=== PATIENT | male | born 1990 | race Caucasian/White ===

== ENCOUNTER 2022-05-16 10:26 | Emergency (ER) | payer OTHER, SELFPAY ==
[2022-05-16] VITALS (20 sets, daily range): BP systolic 111–132; BP diastolic 79–92; PULSE 88–115; RESP 16–30; TEMP 36.6; O2SAT 94–98
--- NOTE | ~2022-05-16 | CT_ITS ---
EXAMINATION: CT brain wo con DATE: 05/16/2022 11:50 INDICATION: Altered mental status. TECHNIQUE: Computed tomography (CT) of the head was performed without intravenous contrast. The mA wa s adjusted according to patient size. Iterative reconstruction technique was employed. The dose-lengt h product was 605.33 mGy-cm. COMPARISON: None FINDINGS: There is no intracranial hemorrhage, acute infarction, or abnormal intracranial mass lesion . The ventricles are normal in size. The orbits are normal. There is mild mucosal thickening in the p aranasal sinuses. The mastoid air cells are normal. IMPRESSION: 1. Normal brain. Reviewed, dictated and finalized at location A. IMPRESSION: 1. Normal brain.
--- NOTE | 2022-05-16 10:27 | ED.GENADULT ---
HPI - General Adult General Chief complaint: Environmental Exposure Stated complaint: heat exhaustion Time Seen by Provider: 05/16/22 10:27 History of Present Illness HPI narrative: The patient is a 31-year-old male with history of bipolar disorder presenting to the emergency department for evaluation because he thought he was becoming overheated. Patient was found crossing an interstate noted to be mumbling by police. Patient was brought in for assessment, currently is alert and oriented to person, place, and to time with clear speech. Patient denies any complaints of chest pain, abdominal pain, nausea or vomiting. Patient states that he was ambulating trying to find a [employer] and decided to cross an interstate in order to get to the bank parking lot. Patient states that he then felt warm and decided to sit down underneath a tree and then he states that he began to feel much better. At 1 point, patient states that his entire body felt tingly. He states that he was very sweaty and fatigued. Patient has been compliant with his medications. These include Cogentin, buspirone, divalproex, ziprasidone. Related Data Home Medications Medication Instructions Recorded Confirmed benztropine 2 mg tablet mg 05/16/22 buspirone 30 mg tablet mg 05/16/22 divalproex 500 mg tablet,extended mg PO 05/16/22 release 24 hr metoprolol succinate 25 mg mg PO 05/16/22 tablet,extended release 24 hr ziprasidone HCl 80 mg capsule mg PO 05/16/22 Allergies Allergy/AdvReac Type Severity Reaction Status Date / Time haloperidol AdvReac Unknown BLACKOUTS Verified 05/16/22 10:32 PER PT risperidone AdvReac Unknown INCREASES Verified 05/16/22 10:32 PROLACTIN PER PT lithium AdvReac Other Verified 05/16/22 10:32 Review of Systems Review of Systems: CONSTITUTIONAL: Denies fever, chills, reports being diaphoretic earlier EYES: Denies visual changes, redness, or discharge. ENT: Denies rhinorrhea, congestion, sore throat, or otalgia. CARDIOVASCULAR: Denies chest pain, palpitations, or edema. RESPIRATORY: Denies cough or dyspnea. GASTROINTESTINAL: Denies abdominal pain, nausea, vomiting, or diarrhea. GENITOURINARY: Denies dysuria or hematuria. SKIN: Denies rash or itching. MUSCULOSKELETAL: Denies back pain, joint pain, or myalgia. NEUROLOGIC: Denies headache, numbness, reports feeling diffusely week, that is now resolved PMFSH Social History Social History (Updated 05/16/22 @ 11:01 by Tamie Edwards MD) Smoking status: Never smoker Alcohol intake: never Substance use: current Substance use type: marijuana Gender identity (if verbalized by the patient): Male Exam Narrative: GENERAL: Awake, alert, conversant HEAD: Normocephalic, atraumatic. EYES: PERRLA and EOMI. ENT: Nares clear, no rhinorrhea or epistaxis. Mucous membranes moist. NECK: Supple. CHEST: No respiratory distress, breathing even and non labored HEART: Regular rate, sinus rhythm ABDOMEN:Non distended, non tender EXTREMITIES: Normal range of motion. No edema. SKIN: Warm, dry, no rash. NEURO:No focal deficits. Alert and oriented x3. Finger to nose intact bilaterally. EOMs intact without nystagmus. No facial droop/asymmetry noted bilaterally. Grimace intact. Intact sensation in face. Hearing intact bilaterally. Shoulder shrug intact. Strength 5/5 bilateral upper extremities. Strength 5/5 bilateral lower extremities. Reflexes 2+ patellar. Heel to andrews intact bilaterally. Ambulatory exam deferred. Course Vital Signs Vital signs: Vital Signs Temperature 36.6 C 05/16/22 10:28 Pulse Rate 111 H 05/16/22 10:28 Respiratory Rate 16 05/16/22 10:28 Blood Pressure 132/92 H 05/16/22 10:28 Pulse Oximetry 96 05/16/22 10:28 Temperature 36.6 C 05/16/22 10:28 Pulse Rate 96 05/16/22 13:35 Respiratory Rate 24 H 05/16/22 13:35 Blood Pressure 111/80 05/16/22 13:35 Pulse Oximetry 94 05/16/22 13:35 Medical Decision Making M
--- NOTE | 2022-05-16 10:28 | ECG_ITS ---
Measurements Intervals [place] Rate: 109 P: 42 DE: 153 QRS: 46 QRSD: 92 T: -1 QT: 337 QTc: 455 Interpretive Statements SINUS TACHYCARDIA EARLY PRECORDIAL R/S TRANSITION NONSPECIFIC T-WAVE ABNORMALITY- ANTEROLAT/INF LEADS ABNORMAL ECG Electronically Signed On 05-16-2022 22:26:34 CDT by Armani Hastings D.O.
[2022-05-16 10:40] LABS: Basophils Absolute Auto 0.1 K/mm3 (0.0-0.1); Basophils Percent Auto 0.6 % (0.2-1.2); Eosinophils Absolute Auto 0.1 K/mm3 (0-0.3); Hematocrit 44.2 % (42.0-52.0); Hemoglobin 14.3 g/dL (14.0-18.0); Immature Granulocyte Absolute 0.06 K/mm3 (0.00-0.031); Immature Granulocyte Percent A 0.7 % (0-0.5); Lymphocytes Absolute Auto 3.47 K/mm3 (0.9-3.2); Lymphocytes Percent Auto 38.5 % (18.3-44.2); Mean Corpuscular HGB Conc 32.4 g/dl (32-36); Mean Corpuscular Hemoglobin 27.7 pg (26-34); Mean Corpuscular Volume 85.7 fl (80-100); Mean Platelet Volume 10.8 fl (7.4-10.4); Monocytes Absolute Auto 0.6 K/mm3 (0.1-0.6); Monocytes Percent Auto 6.1 % (2.6-8.5); Neutrophils Absolute Auto 4.8 K/mm3 (1.3-6.7); Neutrophils Percent Auto 53.1 % (45.5-73.1); Platelet Count Result 274 k/mm3 (150-375); Red Blood Count 5.16 M/mm3 (4.6-6.20); Red Cell Distribution Width 13.2 % (11.5-14.5)
[2022-05-16 10:51] LABS: Alanine Aminotransferase 49 U/L (6-50); Alkaline Phosphatase 77 U/L (38-126); Anion Gap 10 mmol/L (8-16); Aspartate Amino Transferase 39 U/L (17-59); Bilirubin,Total 0.7 mg/dL (0.2-1.3); Blood Urea Nitrogen 10 mg/dL (9-20); Calcium 9.7 mg/dL (8.4-10.2); Carbon Dioxide 25 mmol/L (22-30); Chloride 108 mmol/L (98-107); Creatine Kinase 92 U/L (55-170); Estimated CRCL calculation 95 ml/min; Estimated Glomerular Filt Rate > 60; Glucose 110 mg/dL (65-110); Potassium 4.2 mmol/L (3.4-5.0); Sodium 143 mmol/L (137-145)
[2022-05-16] MEDS: SODIUM CHLORIDE 0.9% IV 1,000 ML 999 ML IV CONT (11:06)
--- NOTE | 2022-05-16 11:08 | PC.NURSE ---
Pt ambulated to bathroom to attempt to provide a urine specimen but was not able to at this time. IV fluids initiated. Will attempt again.
[2022-05-16 11:12] LABS: Glucose Point of Care 132 mg/dl (65-105)
[2022-05-16] MEDS: ONDANSETRON INJ 4 MG/2 ML VIAL IV PUSH (11:59)
[2022-05-16 14:07] LABS: Appearance Urine Clear (Clear); Bilirubin Urine Negative (Negative); Blood Urine Negative (Negative); Color Urine Yellow (Yellow); Glucose Urine UA Negative (Negative); Ketones Urine Negative (Negative); Leukocyte Esterase Ur Negative LEU/UL (Negative); Nitrate Urine Negative (Negative); Protein Urine Trace mg/dL (Negative); Specific Grav Ur 1.015 (1.001-1.035); pH Urine 7.5 (5.0-9.0)
[2022-05-16 14:10] LABS: Mucus Urine Rare /lpf; RBC Urine 0-2 /hpf (0-2); Squamous Epithelial Cell Urine Rare /hpf (Few); WBC Urine 0-3 /hpf
[2022-05-16 14:13] LABS: Add Urine Microscopic? NO
[2022-05-16 14:31] LABS: Amphetamine Screen Urine Negative (Negative); Barbiturate Screen Urine Negative (Negative); Benzodiazepines Screen Urine Negative (Negative); Cannabinoid Screen Urine Negative (Negative); Cocaine Screen Urine Negative (Negative); Methadone Screen Urine Negative (Negative); Opiate Screen Urine Negative (Negative); Phencyclidine Screen Urine Negative (Negative)
== END 2022-05-16 14:35 | disposition home or self-care (01) ==
PROVIDERS: Emergency Provider Emergency Medicine
DX: T67.5XXA Heat exhaustion, unspecified, initial encounter (principal); X30.XXXA Exposure to excessive natural heat, initial encounter
CPT/HCPCS: 36415; 70450; 80053; 80307; 81003; 82550; 82948; 84443; 85025; 93005; 96361; 96374; 99284; J2405; J7030

== ENCOUNTER 2022-10-02 12:02 | Emergency (ER) | payer OTHER, SELFPAY ==
[2022-10-02 12:06] VITALS: BP 121/77; PULSE 95; RESP 18; TEMP 36.6; O2SAT 98
--- NOTE | 2022-10-02 12:24 | PC.NURSE ---
SITTER PLACED AT BEDSIDE FOR ELOPEMENT PURPOSES.
--- NOTE | 2022-10-02 12:27 | ED.GENADULT ---
HPI - General Adult General Chief complaint: Psychiatric Symptoms Stated complaint: HALLUCINATIONS Time Seen by Provider: 10/02/22 12:03 History of Present Illness HPI narrative: 32-year-old male with history of schizophrenia presenting to the emergency department for evaluation of worsening hallucinations. Patient was evaluated by [facility] was going to be a voluntary admission but changed his mind and stated he wanted to be involuntary and EMS brought the patient [facility]. Patient initially declined to answer whether he was homicidal suicidal and declines to state what the voices are telling him to do. Sitter was placed as an elopement risk. On reexamination patient was more willing to answer questions and declined homicidal or suicidal ideation. Related Data Home Medications Medication Instructions Recorded Confirmed benztropine 2 mg tablet mg 05/16/22 buspirone 30 mg tablet mg 05/16/22 divalproex 500 mg tablet,extended mg PO 05/16/22 release 24 hr metoprolol succinate 25 mg mg PO 05/16/22 tablet,extended release 24 hr ziprasidone HCl 80 mg capsule mg PO 05/16/22 Allergies Allergy/AdvReac Type Severity Reaction Status Date / Time haloperidol AdvReac Unknown BLACKOUTS Verified 10/02/22 12:19 PER PT risperidone AdvReac Unknown INCREASES Verified 10/02/22 12:19 PROLACTIN PER PT lithium AdvReac Other Verified 10/02/22 12:19 Review of Systems Review of Systems: CONSTITUTIONAL: Denies fever, chills, or sweats. EYES: Denies visual changes, redness, or discharge. ENT: Denies rhinorrhea, congestion, sore throat, or otalgia. CARDIOVASCULAR: Denies chest pain, palpitations, or edema. RESPIRATORY: Denies cough or dyspnea. GASTROINTESTINAL: Denies abdominal pain, nausea, vomiting, or diarrhea. GENITOURINARY: Denies dysuria or hematuria. SKIN: Denies rash or itching. MUSCULOSKELETAL: Denies back pain, joint pain, or myalgia. NEUROLOGIC: Denies headache, numbness, or weakness. PSYCHIATRIC: Denies homicidal or suicidal ideation [facility] Social History Social History (Updated 05/16/22 @ 11:01 by Tamie Edwards MD) Smoking status: Never smoker Alcohol intake: never Substance use: current Substance use type: marijuana Gender identity (if verbalized by the patient): Male Exam Narrative: APPEARANCE: Well appearing, no pain, no distress, well-nourished. HEAD: normocephalic, atraumatic. EYES: PERRLA/EOMI, conjunctivae clear. NOSE: Normal no drainage NECK: Supple. No adenopathy, no masses. RESPIRATORY: Airway patent, respirations nonlabored. Clear to auscultation bilaterally, no rales, rhonchi, wheezing. CARDIOVASCULAR: Regular rate and rhythm without murmurs rubs or gallops. ABDOMINAL: Soft, nontender, nondistended, normal bowel sounds MUSCULOSKELETAL: Moves all extremities. Strength/ROM intact, No edema, No calf tenderness. NEURO: Alert. Cranial nerves II through XII intact. Good gait. Good coordination SKIN: Warm, dry. Normal Color PSYCHIATRIC: Initially flat affect but affect improved during the patient stay the emergency room Course Course Emergency Course: Patient states he is not homicidal suicidal. Patient states he has access to food and does have a home. Patient does not want to be admitted inpatient psych. Patient was evaluated with crisis counselor and patient is made a safety agreement. Patient will have close follow-up by psychiatric services. Vital Signs Vital signs: Vital Signs Temperature 98 F 10/02/22 12:06 Pulse Rate 95 10/02/22 12:06 Respiratory Rate 18 10/02/22 12:06 Blood Pressure 121/77 10/02/22 12:06 Pulse Oximetry 98 10/02/22 12:06 Oxygen Delivery Room Air 10/02/22 12:06 Temperature 98 F 10/02/22 12:06 Pulse Rate 90 10/02/22 18:34 Respiratory Rate 18 10/02/22 18:34 Blood Pressure 120/78 10/02/22 18:34 Pulse Oximetry 98 10/02/22 18:34 Oxygen Delivery Room Air 10/02/22 12:06 Medical Decision Meseret
[2022-10-02 12:52] LABS: Basophils Percent Auto 0.3 % (0.2-1.2); Eosinophils Absolute Auto 0.1 K/mm3 (0-0.3); Eosinophils Percent Auto 1.6 % (0-4.4); Hematocrit 42.1 % (42.0-52.0); Hemoglobin 13.8 g/dL (14.0-18.0); Immature Granulocyte Absolute 0.04 K/mm3 (0.00-0.031); Immature Granulocyte Percent A 0.5 % (0-0.5); Lymphocytes Absolute Auto 3.31 K/mm3 (0.9-3.2); Lymphocytes Percent Auto 37.4 % (18.3-44.2); Mean Corpuscular HGB Conc 32.8 g/dl (32-36); Mean Corpuscular Hemoglobin 28.8 pg (26-34); Mean Corpuscular Volume 87.9 fl (80-100); Mean Platelet Volume 11.6 fl (7.4-10.4); Monocytes Absolute Auto 0.5 K/mm3 (0.1-0.6); Monocytes Percent Auto 5.9 % (2.6-8.5); Neutrophils Absolute Auto 4.8 K/mm3 (1.3-6.7); Neutrophils Percent Auto 54.3 % (45.5-73.1); Platelet Count Result 284 k/mm3 (150-375); Red Blood Count 4.79 M/mm3 (4.6-6.20); Red Cell Distribution Width 13.2 % (11.5-14.5); White Blood Count 8.8 K/mm3 (4.5-10.0)
--- NOTE | 2022-10-02 13:02 | PC.NURSE ---
Safety food tray ordered for patient
[2022-10-02 13:04] LABS: Ethanol < 10 mg/dL (<10); Magnesium 2.1 mg/dL (1.6-2.3)
[2022-10-02 13:05] LABS: Alanine Aminotransferase 72 U/L (6-50); Albumin Level 4.6 g/dL (3.5-5.1); Alkaline Phosphatase 61 U/L (38-126); Anion Gap 7 mmol/L (8-16); Aspartate Amino Transferase 69 U/L (17-59); Bilirubin,Total 0.2 mg/dL (0.2-1.3); Blood Urea Nitrogen 13 mg/dL (9-20); Calcium 9.2 mg/dL (8.4-10.2); Carbon Dioxide 25 mmol/L (22-30); Chloride 105 mmol/L (98-107); Estimated Glomerular Filt Rate > 60; Glucose 85 mg/dL (65-110); Potassium 4.6 mmol/L (3.4-5.0); Sodium 137 mmol/L (137-145)
[2022-10-02 13:13] LABS: Appearance Urine Clear (Clear); Bilirubin Urine Negative (Negative); Blood Urine Negative (Negative); Color Urine Yellow (Yellow); Glucose Urine UA Negative (Negative); Ketones Urine Negative (Negative); Leukocyte Esterase Ur Negative LEU/UL (Negative); Nitrate Urine Negative (Negative); Protein Urine Negative (Negative); Urobilinogen Urine 0.2 mg/dL (<2.0); pH Urine 5.5 (5.0-9.0)
[2022-10-02 13:24] LABS: Add Urine Microscopic? NO
[2022-10-02 13:38] LABS: Influenza A QL RT-PCR Negative (Negative); Influenza B QL RT-PCR Negative (Negative); SARS-CoV-2 RNA PCR Negative
[2022-10-02 14:50] LABS: Salicylate < 1.0 mg/dL (2-20)
[2022-10-02 15:00] LABS: Amphetamine Screen Urine Negative (Negative); Barbiturate Screen Urine Negative (Negative); Benzodiazepines Screen Urine Negative (Negative); Cannabinoid Screen Urine Negative (Negative); Cocaine Screen Urine Negative (Negative); Methadone Screen Urine Negative (Negative); Opiate Screen Urine Negative (Negative); Phencyclidine Screen Urine Negative (Negative)
--- NOTE | 2022-10-02 15:14 | PC.NURSE ---
Pt medically cleared per María COPELAND.
--- NOTE | 2022-10-02 15:15 | PC.NURSE ---
[facility] notified for evaluation of patient. ETA 60-90 minutes
--- NOTE | 2022-10-02 15:16 | PC.NURSE ---
1505- RN called to bedside by liliana king, pt states he would like to go home. Discussed recommendation for pt to stay and be evaluated by Crisis.
[2022-10-02 18:34] VITALS: BP 120/78; PULSE 90; RESP 18; O2SAT 98
== END 2022-10-02 18:40 | disposition home or self-care (01) ==
PROVIDERS: Emergency Provider Emergency Medicine
DX: F20.9 Schizophrenia, unspecified (principal); Z20.822 Contact with and (suspected) exposure to COVID-19
CPT/HCPCS: 36415; 80053; 80307; 81003; 83735; 84443; 85025; 87636; 99284

== ENCOUNTER 2022-10-22 05:29 | Emergency (ER) | payer OTHER, SELFPAY ==
[2022-10-22 05:27] VITALS: BP 157/103; PULSE 89; RESP 18; TEMP 37.1; O2SAT 98
--- NOTE | 2022-10-22 05:33 | ED.GENADULT ---
HPI - General Adult General Chief complaint: Environmental Exposure <Thor Moore MD - Last Filed: 10/22/22 07:46> Stated complaint: EXPOSURE TO FREEZING WEATHER <Thor Moore MD - Last Filed: 10/22/22 07:46> Time Seen by Provider: 10/22/22 05:30 <Thor Moore MD - Last Filed: 10/22/22 07:46> History of Present Illness HPI narrative: 32-year-old male presenting the emergency department for evaluation of environmental exposure. Patient does have history of schizophrenia and has been seen in the ED previously for psychiatric assessment. Patient denies any homicidal or suicidal ideation. Patient was brought to the emergency department because he was found sitting outside a store in the call. Patient was not wearing shoes socks or gloves and patient was wet from the snow. Upon arrival to the emergency department patient was denying any complaints and did not make any suicidal or homicidal statements. Patient's temperature on arrival was 98.7. <Thor Moore MD - Last Filed: 10/22/22 07:46> Related Data Home medications: Home Medications Medication Instructions Recorded Confirmed benztropine 2 mg tablet mg 05/16/22 buspirone 30 mg tablet mg 05/16/22 divalproex 500 mg tablet,extended mg PO 05/16/22 release 24 hr metoprolol succinate 25 mg mg PO 05/16/22 tablet,extended release 24 hr ziprasidone HCl 80 mg capsule mg PO 05/16/22 <Thor Moore MD - Last Filed: 10/22/22 07:46> Allergies/adverse reactions: Allergies Allergy/AdvReac Type Severity Reaction Status Date / Time haloperidol AdvReac Unknown BLACKOUTS Verified 10/22/22 05:38 PER PT risperidone AdvReac Unknown INCREASES Verified 10/22/22 05:38 PROLACTIN PER PT lithium AdvReac Other Verified 10/22/22 05:38 <Thor Moore MD - Last Filed: 10/22/22 07:46> Review of Systems Review of Systems: CONSTITUTIONAL: Chills EYES: Denies visual changes, redness, or discharge. ENT: Denies rhinorrhea, congestion, sore throat, or otalgia. CARDIOVASCULAR: Denies chest pain, palpitations, or edema. RESPIRATORY: Denies cough or dyspnea. GASTROINTESTINAL: Denies abdominal pain, nausea, vomiting, or diarrhea. GENITOURINARY: Denies dysuria or hematuria. SKIN: Denies rash or itching. MUSCULOSKELETAL: Denies back pain, joint pain, or myalgia. NEUROLOGIC: Denies headache, numbness, or weakness. <Thor Moore MD - Last Filed: 10/22/22 07:46> [facility] Social History Social History: Social History (Updated 05/16/22 @ 11:01 by Tamie Edwards MD) Smoking status: Never smoker Alcohol intake: never Substance use: current Substance use type: marijuana Gender identity (if verbalized by the patient): Male <Thor Moore MD - Last Filed: 10/22/22 07:46> Exam Narrative: APPEARANCE: Patient does have shivering but otherwise no distress HEAD: normocephalic, atraumatic. EYES: PERRLA/EOMI, conjunctivae clear. NOSE: Normal no drainage EARS:TMS clear with good light reflex. THROAT: Pharynx clear, no exudate. NECK: Supple. No adenopathy, no masses. RESPIRATORY: Airway patent, respirations nonlabored. Clear to auscultation bilaterally, no rales, rhonchi, wheezing. CARDIOVASCULAR: Regular rate and rhythm without murmurs rubs or gallops. ABDOMINAL: Soft, nontender, nondistended, normal bowel sounds MUSCULOSKELETAL: Moves all extremities. Strength/ROM intact, No edema, No calf tenderness. NEURO: Alert. Cranial nerves II through XII intact. Grossly intact SKIN: Warm, dry. Normal Color <Thor Moore MD - Last Filed: 10/22/22 07:46> Course Course Emergency Course: Patient was brought to the emergency department for concern of exposure. Patient has no evidence of frostbite and is not hypothermic. Patient is afebrile with no leukocytosis. Patient's electrolytes do not show any major abnormalities. Patient does have a slight anion gap and patient is being treated with IV flu
[2022-10-22] MEDS: SODIUM CHLORIDE 0.9% IV 1,000 ML 999 ML IV CONT ×2 (05:48→06:39)
[2022-10-22 05:56] LABS: Basophils Percent Auto 0.4 % (0.2-1.2); Eosinophils Percent Auto 0.3 % (0-4.4); Hematocrit 44.6 % (42.0-52.0); Hemoglobin 14.3 g/dL (14.0-18.0); Immature Granulocyte Absolute 0.07 K/mm3 (0.00-0.031); Immature Granulocyte Percent A 0.7 % (0-0.5); Lymphocytes Absolute Auto 2.69 K/mm3 (0.9-3.2); Lymphocytes Percent Auto 27.9 % (18.3-44.2); Mean Corpuscular HGB Conc 32.1 g/dl (32-36); Mean Corpuscular Hemoglobin 28.3 pg (26-34); Mean Corpuscular Volume 88.3 fl (80-100); Mean Platelet Volume 12.1 fl (7.4-10.4); Monocytes Absolute Auto 0.6 K/mm3 (0.1-0.6); Monocytes Percent Auto 6.6 % (2.6-8.5); Neutrophils Absolute Auto 6.2 K/mm3 (1.3-6.7); Neutrophils Percent Auto 64.1 % (45.5-73.1); Platelet Count Result 259 k/mm3 (150-375); Red Blood Count 5.05 M/mm3 (4.6-6.20); Red Cell Distribution Width 13.2 % (11.5-14.5); White Blood Count 9.6 K/mm3 (4.5-10.0)
[2022-10-22 05:58] LABS: Acetaminophen < 10 ug/mL (10-30); Creatine Kinase 323 U/L (55-170); Ethanol < 10 mg/dL (<10); Magnesium 1.9 mg/dL (1.6-2.3)
[2022-10-22 06:00] LABS: Salicylate < 1.0 mg/dL (2-20)
[2022-10-22 06:01] LABS: Alanine Aminotransferase 35 U/L (6-50); Albumin Level 5.2 g/dL (3.5-5.1); Alkaline Phosphatase 74 U/L (38-126); Anion Gap 19 mmol/L (8-16); Aspartate Amino Transferase 49 U/L (17-59); Bilirubin,Total 0.6 mg/dL (0.2-1.3); Blood Urea Nitrogen 23 mg/dL (9-20); Carbon Dioxide 19 mmol/L (22-30); Chloride 101 mmol/L (98-107); Estimated Glomerular Filt Rate > 60; Glucose 68 mg/dL (65-110); Potassium 4.3 mmol/L (3.4-5.0); Sodium 139 mmol/L (137-145)
[2022-10-22 06:24] LABS: Influenza A QL RT-PCR Negative (Negative); Influenza B QL RT-PCR Negative (Negative); RSV RNA, RT-PCR Negative (Negative); SARS-CoV-2 RNA PCR Negative
[2022-10-22 06:32] LABS: Thyroid Stimulating Hormone 0.723 uIU/mL (0.465-4.680)
[2022-10-22 07:25] VITALS: BP 110/66; PULSE 100; RESP 18; O2SAT 98
--- NOTE | 2022-10-22 07:25 | PC.NURSE ---
Pt said not able to urinate at this time.
[2022-10-22 08:39] LABS: Add Urine Microscopic? YES; Appearance Urine Clear (Clear); Bilirubin Urine 2+ (Negative); Blood Urine Negative (Negative); Color Urine Yellow (Yellow); Glucose Urine UA Negative (Negative); Ketones Urine 3+ mg/dL (Negative); Leukocyte Esterase Ur Negative LEU/UL (Negative); Nitrate Urine Negative (Negative); Protein Urine Negative (Negative); Specific Grav Ur >= 1.030 (1.001-1.035); Urobilinogen Urine 0.2 mg/dL (<2.0)
[2022-10-22 08:45] LABS: Mucus Urine Rare /lpf; RBC Urine 0-2 /hpf (0-2); Squamous Epithelial Cell Urine Rare /hpf (Few); WBC Urine 0-3 /hpf
[2022-10-22 08:48] LABS: Amphetamine Screen Urine Negative (Negative); Barbiturate Screen Urine Negative (Negative); Benzodiazepines Screen Urine Negative (Negative); Cannabinoid Screen Urine Negative (Negative); Cocaine Screen Urine Negative (Negative); Methadone Screen Urine Negative (Negative); Opiate Screen Urine Negative (Negative); Phencyclidine Screen Urine Negative (Negative)
--- NOTE | 2022-10-22 09:50 | PC.NURSE ---
managed care coordinator working to find warm placement for pt.
--- NOTE | 2022-10-22 10:27 | PCCCNOTE ---
Met with patient in ED Room 13, Patient used to live at [facility] and does know the landlord but isn't currently housed there. Patient does not have a place to stay today and has received ER treatment for environmental exposure. Called to [facility] and spoke with male pharmacy sales representative that states that their outreach day program is open today which is connected to their building for overnight which will open at 7pm. Provided patient with warming center print out from [employer], homeless long-term resources, housing resources and a couple clothing needs. Cab voucher provided to bedside JOY Singh. agriculture extension specialist Jenn and Dr. German updated.
[2022-10-22 10:30] VITALS: BP 100/69; PULSE 72; RESP 18; O2SAT 100
== END 2022-10-22 10:35 | disposition home or self-care (01) ==
PROVIDERS: Emergency Medicine; Emergency Provider Emergency Medicine
DX: T69.9XXA Effect of reduced temperature, unspecified, initial encounter (principal); F20.9 Schizophrenia, unspecified; Z20.822 Contact with and (suspected) exposure to COVID-19; X31.XXXA Exposure to excessive natural cold, initial encounter; Z79.899 Other long term (current) drug therapy
CPT/HCPCS: 36415; 80053; 80307; 81001; 82550; 83735; 84443; 85025; 87637; 96360; 96361; 99283; J7030

== ENCOUNTER 2022-11-04 14:43 | Emergency (ER) | payer OTHER, SELFPAY ==
[2022-11-04] VITALS (8 sets, daily range): BP systolic 118–146; BP diastolic 64–89; PULSE 88–148; RESP 12–18; TEMP 36.7; O2SAT 96–100
--- NOTE | ~2022-11-04 | XR_ITS ---
EXAMINATION: XR chest 1V portable Exam Date/Time: 11/04/2022 15:15 HAND MODEL HISTORY: WEAKNESS ALTERED MENTAL STATE Comparison: None available. RESULT: Lines, tubes, and devices: None. Lungs and pleura: Low lung volumes with crowding, otherwise clear. Cardiomediastinal silhouette: Partially obscured, otherwise unremarkable. Other: No acute osseous or upper abdominal finding. IMPRESSION: No acute cardiopulmonary process. Reviewed, dictated and finalized at location K. MODEL
--- NOTE | 2022-11-04 15:06 | ECG_ITS ---
Measurements Intervals [place] Rate: 123 P: UT: 0 QRS: 23 QRSD: 89 T: 9 QT: 308 QTc: 442 Interpretive Statements PROBABLY SINUS TACHYCARDIA (SIGNIFICANT BASELINE ARTIFACT) BASELINE ARTIFACT- I, II, III, AVR, AVL, AVF, V1-V6 ABNORMAL ECG COMPARED TO ECG 05/16/2022 11:06:26 HEART RATE HAS INCREASED Electronically Signed On 11-04-2022 15:15:32 EXTRUSION TECHNICIAN by Armani Hastings D.O.
[2022-11-04 15:25] LABS: Basophils Percent Auto 0.2 % (0.2-1.2); Eosinophils Absolute Auto 0.1 K/mm3 (0-0.3); Eosinophils Percent Auto 1.1 % (0-4.4); Hematocrit 42.3 % (42.0-52.0); Hemoglobin 13.9 g/dL (14.0-18.0); Immature Granulocyte Absolute 0.02 K/mm3 (0.00-0.031); Immature Granulocyte Percent A 0.2 % (0-0.5); Lymphocytes Absolute Auto 2.13 K/mm3 (0.9-3.2); Lymphocytes Percent Auto 25.2 % (18.3-44.2); Mean Corpuscular HGB Conc 32.9 g/dl (32-36); Mean Corpuscular Hemoglobin 28.5 pg (26-34); Mean Corpuscular Volume 86.7 fl (80-100); Mean Platelet Volume 10.8 fl (7.4-10.4); Monocytes Absolute Auto 0.5 K/mm3 (0.1-0.6); Monocytes Percent Auto 6.2 % (2.6-8.5); Neutrophils Absolute Auto 5.7 K/mm3 (1.3-6.7); Neutrophils Percent Auto 67.1 % (45.5-73.1); Platelet Count Result 339 k/mm3 (150-375); Red Blood Count 4.88 M/mm3 (4.6-6.20); Red Cell Distribution Width 13.4 % (11.5-14.5); White Blood Count 8.5 K/mm3 (4.5-10.0)
[2022-11-04 15:33] LABS: Lactic Acid Reflex 1.9 mmol/L (0.7-2.0)
--- NOTE | 2022-11-04 15:50 | PC.NURSE ---
Spoke with pt's father and [facility], pt was back at [facility] on 11/02/2022 and since he was back pt was refusing his medications. According to his father and [facility] last time pt got his Invega shot was during his hospital stay at [facility], and his next shot will be on 11/29/22, he did not get any meds or Invega shots at [facility]. His father said that he was in really bad shape, hallucinating and confuse and the [facility] took him off of lots of medications.
[2022-11-04] MEDS: LORazepam INJ (*CRX) 2 MG/ML VIAL 1 MG IV PUSH (16:08)
[2022-11-04] MEDS: SODIUM CHLORIDE 0.9% IV 1,000 ML 999 ML IV CONT ×2 (16:08→17:15)
[2022-11-04 16:16] LABS: Ethanol < 10 mg/dL (<10)
[2022-11-04] MEDS: ONDANSETRON INJ 4 MG/2 ML VIAL IV PUSH (16:18)
[2022-11-04 16:20] LABS: Prothrombin Time 12.4 Seconds (11.1-14.7)
[2022-11-04 16:21] LABS: Partial Thromboplastin Time 29.2 SECONDS (22.3-36.8)
--- NOTE | 2022-11-04 16:30 | ED.NAVMDI ---
HPI - Nausea/Vomiting/Diarrhea General Chief complaint: Nausea/Vomiting/Diarrhea <Joana Herman MD - Last Filed: 11/08/22 19:02> Stated complaint: n/v x24 , SOB <Joana Herman MD - Last Filed: 11/08/22 19:02> Time Seen by Provider: 11/04/22 15:13 <Joana Herman MD - Last Filed: 11/08/22 19:02> Source: RN notes reviewed and old records reviewed <Joana Herman MD - Last Filed: 11/08/22 19:02> Mode of arrival: EMS <Joana Herman MD - Last Filed: 11/08/22 19:02> History of Present Illness HPI Narrative: This is a 32 year old male with history of schizophrenia who presents for evaluation of nausea and vomiting. Nursing staff spoke with [facility] and patient's father over the phone. They report that patient was recently admitted to [facility] for confusion and schizophrenia. During that admission, he had changes to his medications and he was discharged 2 days ago. They also report that patient has refused to take his medication for 2 days. PAtient reports that he has had nausea and vomiting for 2 days. HE denies chest pain, sob or abdominal pain. He does report that he hears voices but he denies being suicidal. He also states that he was given 2 dose of invega 2 days in a row. There is no record showing that he given an additional dose other than what he received at [facility]. <Joana Herman MD - Last Filed: 11/08/22 19:02> Related Data Home medications: Home Medications Medication Instructions Recorded Confirmed benztropine 2 mg tablet mg 05/16/22 buspirone 30 mg tablet mg 05/16/22 divalproex 500 mg tablet,extended mg PO 05/16/22 release 24 hr metoprolol succinate 25 mg mg PO 05/16/22 tablet,extended release 24 hr ziprasidone HCl 80 mg capsule mg PO 05/16/22 <Joana Herman MD - Last Filed: 11/08/22 19:02> Allergies/Adverse reactions: Allergies Allergy/AdvReac Type Severity Reaction Status Date / Time haloperidol AdvReac Unknown BLACKOUTS Verified 10/22/22 05:38 PER PT risperidone AdvReac Unknown INCREASES Verified 10/22/22 05:38 PROLACTIN PER PT lithium AdvReac Other Verified 10/22/22 05:38 <Joana Herman MD - Last Filed: 11/08/22 19:02> Review of Systems Constitutional: Constitutional: Denies weakness <Joana Herman MD - Last Filed: 11/08/22 19:02> Cardiovascular: Cardiovascular: Denies syncope, Denies rapid heart rate, Denies irregular heart rhythm, Denies leg edema and Denies dyspnea <Joana Herman MD - Last Filed: 11/08/22 19:02> Respiratory: Respiratory: Denies chest congestion, Denies hemoptysis, Denies excessive phlegm production and Denies dyspnea <Joana Herman MD - Last Filed: 11/08/22 19:02> Gastrointestinal: Gastrointestinal: Denies abdominal pain, Denies hematochezia, Denies diarrhea, Reports nausea and Reports vomiting <Joana Herman MD - Last Filed: 11/08/22 19:02> Genitourinary: Genitourinary: Denies hematuria, Denies dysuria, Denies penile discharge and Denies testicular pain <Joana Herman MD - Last Filed: 11/08/22 19:02> Musculoskeletal: Musculoskeletal: Denies joint swelling, Denies loss of height and Denies muscle weakness <Joana Herman MD - Last Filed: 11/08/22 19:02> Neurologic: Denies syncope, Denies focal weakness and Denies weakness <Joana Herman MD - Last Filed: 11/08/22 19:02> Psychiatric: Psychiatric: Denies homicidal ideation and Denies suicidal ideation <Joana Herman MD - Last Filed: 11/08/22 19:02> [facility] Past Medical History Medical History: Medical History Bipolar disorder Hyperlipidemia Hypertension Schizophrenia <Joana Herman MD - Last Filed: 11/08/22 19:02> Social History Social History: Social History Smoking status: Never smoker Alcohol intake: never Substance use: current Substance us
[2022-11-04 16:31] LABS: Alanine Aminotransferase 261 U/L (6-50); Albumin Level 4.4 g/dL (3.5-5.1); Alkaline Phosphatase 113 U/L (38-126); Anion Gap 9 mmol/L (8-16); Aspartate Amino Transferase 99 U/L (17-59); Bilirubin,Total 0.3 mg/dL (0.2-1.3); Blood Urea Nitrogen 10 mg/dL (9-20); CRP 1.3 mg/dL (<1.0); Calcium 9.9 mg/dL (8.4-10.2); Carbon Dioxide 27 mmol/L (22-30); Chloride 101 mmol/L (98-107); Creatine Kinase 54 U/L (55-170); Estimated CRCL calculation 163 ml/min; Estimated Glomerular Filt Rate > 60; Glucose 128 mg/dL (65-110); Lipase 75 U/L (23-300); Potassium 3.8 mmol/L (3.4-5.0); Sodium 137 mmol/L (137-145)
[2022-11-04 16:43] LABS: Influenza A QL RT-PCR Negative (Negative); Influenza B QL RT-PCR Negative (Negative); SARS-CoV-2 RNA PCR Negative
[2022-11-04] MEDS: METOPROLOL SUCCINATE EXT REL 25 MG TABCR PO (16:56)
--- NOTE | 2022-11-04 17:08 | PC.NURSE ---
Pt not able to urinate at this time.
[2022-11-04] MEDS: METOPROLOL TARTRATE INJ 5 MG/5 ML VIAL IV PUSH (17:15)
[2022-11-04 18:44] LABS: Add Urine Microscopic? NO; Appearance Urine Clear (Clear); Bilirubin Urine Negative (Negative); Blood Urine Negative (Negative); Color Urine Yellow (Yellow); Glucose Urine UA Negative (Negative); Ketones Urine Negative (Negative); Leukocyte Esterase Ur Negative LEU/UL (Negative); Nitrate Urine Negative (Negative); Protein Urine Negative (Negative); Specific Grav Ur 1.015 (1.001-1.035); Urobilinogen Urine 0.2 mg/dL (<2.0); pH Urine 7.5 (5.0-9.0)
[2022-11-04 18:54] LABS: Amphetamine Screen Urine Negative (Negative); Barbiturate Screen Urine Negative (Negative); Benzodiazepines Screen Urine Negative (Negative); Cannabinoid Screen Urine Negative (Negative); Cocaine Screen Urine Negative (Negative); Methadone Screen Urine Negative (Negative); Mucus Urine Rare /lpf; Opiate Screen Urine Negative (Negative); Phencyclidine Screen Urine Negative (Negative); RBC Urine 0-2 /hpf (0-2); WBC Urine 0-3 /hpf
--- NOTE | 2022-11-04 19:16 | PC.NURSE ---
Report received from JOY Hinojosa. Assumed care of patient at this time.
--- NOTE | 2022-11-04 19:33 | PC.NURSE ---
Patient given sandwich, chips and a drink by previous nurse for po challenge, tolerated well.
--- NOTE | 2022-11-04 20:24 | PC.NURSE ---
Called Crisis and spoke with Kathy upon request of patient. Kathy stated they will follow up with him this coming week. Kathy stated she will call the transport service to have taxi come pick patient up, she stated she will call back with update.
--- NOTE | 2022-11-04 20:36 | PC.NURSE ---
Kathy from Crisis calls back to state that a cab is on the way to pick patient up and transport him home. She states eta is 20-30 min.
== END 2022-11-04 20:49 | disposition home or self-care (01) ==
PROVIDERS: Emergency Medicine; General Practice; Emergency Provider Emergency Medicine
DX: R11.2 Nausea with vomiting, unspecified (principal); Z20.822 Contact with and (suspected) exposure to COVID-19; F20.9 Schizophrenia, unspecified; F31.9 Bipolar disorder, unspecified; E78.5 Hyperlipidemia, unspecified; I10 Essential (primary) hypertension; T44.7X6A Underdosing of beta-adrenoreceptor antagonists, initial encounter; Z91.128 Patient's intentional underdosing of medication regimen for other reason; Z79.899 Other long term (current) drug therapy; R00.0 Tachycardia, unspecified
CPT/HCPCS: 23665; 36415; 71045; 80053; 80307; 81003; 82550; 83605; 83690; 85025; 85610; 85730; 86140; 87636; 93005; 96374; 96375; 99284; A9270; J2060; J2405; J7030

== ENCOUNTER 2022-11-04 21:06 | Emergency (ER) | payer OTHER, SELFPAY ==
[2022-11-04 21:21] VITALS: BP 124/79; PULSE 102; RESP 18; TEMP 36.8; O2SAT 98
--- NOTE | 2022-11-04 21:57 | ED.PSYCH ---
HPI - Psych General Chief Complaint: Psychiatric Symptoms Stated Complaint: wants psych placement for obessive thoughts Time Seen by Provider: 11/04/22 21:33 History of Present Illness HPI Narrative: 32-year-old male history of schizo affective disorder and hypertension presents to the emergency room for evaluation of worsening auditory hallucinations. Patient states that he resides at [place], and sees a Dr. Frey for his hallucinations. States he took an Invega shot 2 weeks ago. Presently, patient has been experiencing auditory hallucinations where he is having people tell him to [employer] . No SI or HI. Related Data Home Medications Medication Instructions Recorded Confirmed benztropine 2 mg tablet mg 05/16/22 buspirone 30 mg tablet mg 05/16/22 divalproex 500 mg tablet,extended mg PO 05/16/22 release 24 hr metoprolol succinate 25 mg mg PO 05/16/22 tablet,extended release 24 hr ziprasidone HCl 80 mg capsule mg PO 05/16/22 Allergies Allergy/AdvReac Type Severity Reaction Status Date / Time haloperidol AdvReac Unknown BLACKOUTS Verified 10/22/22 05:38 PER PT risperidone AdvReac Unknown INCREASES Verified 10/22/22 05:38 PROLACTIN PER PT lithium AdvReac Other Verified 10/22/22 05:38 Review of Systems Review of Systems: CONSTITUTIONAL: Denies fever, chills, or sweats. EYES: Denies visual changes, redness, or discharge. ENT: Denies rhinorrhea, congestion, sore throat, or otalgia. CARDIOVASCULAR: Denies chest pain, palpitations, or edema. RESPIRATORY: Denies cough or dyspnea. GASTROINTESTINAL: Denies abdominal pain, nausea, vomiting, or diarrhea. GENITOURINARY: Denies dysuria or hematuria. SKIN: Denies rash or itching. MUSCULOSKELETAL: Denies back pain, joint pain, or myalgia. NEUROLOGIC: Denies headache, numbness, dizziness, or weakness. PSYCHIATRIC: Denies anxiety or depression. [facility] Past Medical History Medical History Bipolar disorder Hyperlipidemia Hypertension Schizophrenia Social History Social History Smoking status: Never smoker Alcohol intake: never Substance use: current Substance use type: marijuana Gender identity (if verbalized by the patient): Male Exam Narrative: GENERAL: Disheveled HEAD: Normocephalic, atraumatic. EYES: Conjunctivae normal, PERRLA and EOMI. CHEST: Clear to auscultation. No respiratory distress. No wheezes rales or rhonchi. HEART: Regular rate and rhythm. No murmur heard. Normal peripheral pulses. BACK: No CVA tenderness; No cervical/thoracic/lumbar tenderness, step-offs, bony abnormality; FROM EXTREMITIES: Normal range of motion. No edema. No clubbing or cyanosis SKIN: Warm, dry, no rash. No noted wounds NEURO: No focal deficits. Alert and oriented x3. MAEW. CN's II-XI intact bilaterally, normal gait PSYCH: Cooperative. Experiencing auditory hallucinations Course Vital Signs Vital signs: Vital Signs Temperature 36.8 C 11/04/22 21:21 Pulse Rate 102 H 11/04/22 21:21 Respiratory Rate 18 11/04/22 21:21 Blood Pressure 124/79 11/04/22 21:21 Pulse Oximetry 98 11/04/22 21:21 Oxygen Delivery Room Air 11/04/22 21:21 Temperature 36.8 C 11/04/22 22:00 Pulse Rate 86 11/04/22 22:00 Respiratory Rate 20 11/04/22 22:00 Blood Pressure 126/79 11/04/22 22:00 Pulse Oximetry 99 11/04/22 22:00 Oxygen Delivery Room Air 11/04/22 21:21 MDM - Psych Lab Data 11/04/22 22:10 11/04/22 22:10 Labs: Lab Results 11/04/22 11/04/22 11/04/22 Range/Units 22:10 22:10 22:10 WBC 9.6 (4.5-10.0) K/mm3 RBC 4.42 L (4.6-6.20) M/mm3 Hgb 12.5 L (14.0-18.0) g/dL Hct 39.4 L (42.0-52.0) % MCV 89.1 (80-100) fl MCH 28.3 (26-34) pg MCHC 31.7 L (32-36) g/dl RDW 13.3 (11.5-14.5) % Plt Count 329 (150-375) k/mm3 MPV 10.1 (7.4-10.4) fl
[2022-11-04 22:00] VITALS: BP 126/79; PULSE 86; RESP 20; TEMP 36.8; O2SAT 99
[2022-11-04 22:19] LABS: Basophils Percent Auto 0.3 % (0.2-1.2); Eosinophils Absolute Auto 0.1 K/mm3 (0-0.3); Eosinophils Percent Auto 0.5 % (0-4.4); Hematocrit 39.4 % (42.0-52.0); Hemoglobin 12.5 g/dL (14.0-18.0); Immature Granulocyte Absolute 0.02 K/mm3 (0.00-0.031); Immature Granulocyte Percent A 0.2 % (0-0.5); Lymphocytes Absolute Auto 1.67 K/mm3 (0.9-3.2); Lymphocytes Percent Auto 17.4 % (18.3-44.2); Mean Corpuscular HGB Conc 31.7 g/dl (32-36); Mean Corpuscular Hemoglobin 28.3 pg (26-34); Mean Corpuscular Volume 89.1 fl (80-100); Mean Platelet Volume 10.1 fl (7.4-10.4); Monocytes Absolute Auto 0.5 K/mm3 (0.1-0.6); Neutrophils Absolute Auto 7.4 K/mm3 (1.3-6.7); Neutrophils Percent Auto 76.6 % (45.5-73.1); Platelet Count Result 329 k/mm3 (150-375); Red Blood Count 4.42 M/mm3 (4.6-6.20); Red Cell Distribution Width 13.3 % (11.5-14.5); White Blood Count 9.6 K/mm3 (4.5-10.0)
[2022-11-04 22:30] LABS: Alanine Aminotransferase 229 U/L (6-50); Albumin Level 4.1 g/dL (3.5-5.1); Alkaline Phosphatase 93 U/L (38-126); Anion Gap 9 mmol/L (8-16); Aspartate Amino Transferase 85 U/L (17-59); Bilirubin,Total 0.2 mg/dL (0.2-1.3); Blood Urea Nitrogen 8 mg/dL (9-20); Calcium 9.2 mg/dL (8.4-10.2); Carbon Dioxide 27 mmol/L (22-30); Chloride 105 mmol/L (98-107); Estimated Glomerular Filt Rate > 60; Glucose 113 mg/dL (65-110); Potassium 3.7 mmol/L (3.4-5.0); Sodium 141 mmol/L (137-145)
[2022-11-04 22:42] LABS: Barbiturate Screen Urine Negative (Negative); Benzodiazepines Screen Urine Negative (Negative)
[2022-11-04 22:47] LABS: Amphetamine Screen Urine Negative (Negative); Cannabinoid Screen Urine Negative (Negative); Cocaine Screen Urine Negative (Negative); Methadone Screen Urine Negative (Negative); Opiate Screen Urine Negative (Negative); Phencyclidine Screen Urine Negative (Negative)
[2022-11-04 23:18] LABS: Acetaminophen < 10 ug/mL (10-30); Ethanol < 10 mg/dL (<10); Salicylate < 1.0 mg/dL (2-20)
[2022-11-05 00:04] VITALS: BP 116/79; PULSE 84; RESP 18; TEMP 36.8; O2SAT 99
== END 2022-11-05 00:06 | disposition home or self-care (01) ==
PROVIDERS: Emergency Provider Nurse Practitioner Family
DX: F20.9 Schizophrenia, unspecified (principal); F31.9 Bipolar disorder, unspecified; E78.5 Hyperlipidemia, unspecified; I10 Essential (primary) hypertension
CPT/HCPCS: 23665; 36415; 71045; 80053; 80307; 81003; 82550; 83605; 83690; 85025; 85610; 85730; 86140; 87636; 93005; 96374; 96375; 99283; A9270; J2060; J2405; J7030

== ENCOUNTER 2023-03-04 17:35 | Emergency (ER) | payer OTHER, SELFPAY ==
[2023-03-04 17:38] VITALS: BP 137/114; PULSE 95; RESP 20; TEMP 36.3; O2SAT 98
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
[2023-03-04 20:18] LABS: Basophils Percent Auto 0.3 % (0.2-1.2); Eosinophils Percent Auto 0.2 % (0-4.4); Hematocrit 41.8 % (42.0-52.0); Hemoglobin 14.2 g/dL (14.0-18.0); Immature Granulocyte Absolute 0.04 K/mm3 (0.00-0.031); Immature Granulocyte Percent A 0.3 % (0-0.5); Lymphocytes Absolute Auto 3.76 K/mm3 (0.9-3.2); Lymphocytes Percent Auto 28.6 % (18.3-44.2); Mean Corpuscular Hemoglobin 27.5 pg (26-34); Mean Platelet Volume 11.1 fl (7.4-10.4); Monocytes Absolute Auto 0.8 K/mm3 (0.1-0.6); Monocytes Percent Auto 5.9 % (2.6-8.5); Neutrophils Absolute Auto 8.5 K/mm3 (1.3-6.7); Neutrophils Percent Auto 64.7 % (45.5-73.1); Platelet Count Result 330 k/mm3 (150-375); Red Blood Count 5.16 M/mm3 (4.6-6.20); Red Cell Distribution Width 13.2 % (11.5-14.5); White Blood Count 13.2 K/mm3 (4.5-10.0)
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
[2023-03-04 20:38] LABS: Acetaminophen < 10 ug/mL (10-30); Ethanol < 10 mg/dL (<10)
[2023-03-04 21:01] LABS: Alanine Aminotransferase 43 U/L (6-50); Albumin Level 5.2 g/dL (3.5-5.1); Alkaline Phosphatase 130 U/L (38-126); Anion Gap 15 mmol/L (8-16); Aspartate Amino Transferase 39 U/L (17-59); Bilirubin,Total 0.8 mg/dL (0.2-1.3); Blood Urea Nitrogen 15 mg/dL (9-20); Carbon Dioxide 18 mmol/L (22-30); Chloride 107 mmol/L (98-107); Estimated Glomerular Filt Rate > 60; Glucose 104 mg/dL (65-110); Potassium 3.7 mmol/L (3.4-5.0); Sodium 140 mmol/L (137-145)
[2023-03-04 21:02] LABS: Influenza A QL RT-PCR Negative (Negative); Influenza B QL RT-PCR Negative (Negative); SARS-CoV-2 RNA PCR Negative (Negative)
[2023-03-05 01:53] LABS: Appearance Urine Clear (Clear); Bacteria Urine None Seen /hpf; Bilirubin Urine Negative (Negative); Blood Urine Negative (Negative); Color Urine Yellow (Yellow); Glucose Urine UA Negative (Negative); Ketones Urine 1+ mg/dL (Negative); Leukocyte Esterase Ur Negative LEU/UL (Negative); Nitrate Urine Negative (Negative); Non Pathogenic Casts 0-2; Protein Urine Trace mg/dL (Negative); RBC Urine 0-2 /hpf (0-2); Specific Grav Ur 1.021 (1.001-1.035); Squamous Epithelial Cell Urine None seen /hpf (Few); WBC Urine 0-5 /hpf; pH Urine >=9.0 (5.0-9.0)
[2023-03-05 02:08] LABS: Add Urine Microscopic? YES
[2023-03-05 02:27] VITALS: BP 110/62; PULSE 109; RESP 16; O2SAT 97
[2023-03-05] MEDS: OLANZapine 5 MG TABLET PO ×2 (02:27→13:14)
[2023-03-05 02:28] LABS: Amphetamine Screen Urine Negative (Negative); Barbiturate Screen Urine Negative (Negative); Benzodiazepines Screen Urine Negative (Negative); Cannabinoid Screen Urine Negative (Negative); Cocaine Screen Urine Negative (Negative); Methadone Screen Urine Negative (Negative); Opiate Screen Urine Negative (Negative); Phencyclidine Screen Urine Negative (Negative)
[2023-03-05 06:36] VITALS: BP 154/93; PULSE 108; RESP 17; O2SAT 95
[2023-03-05 07:11] VITALS: BP 128/89; PULSE 94; RESP 18; O2SAT 97
--- NOTE | 2023-03-05 07:14 | PC.NURSE ---
Assumed care of pt, pt is alert an upright, restless, answers few questions when asked. Denies SI/HI at this time, no sitter at bedside. Offered to order breakfast tray for pt and he states he would like a tray. Invol. admit per Chio HAMILTON during bedside report. Crisis here currently working on chart/seeking placement. VSS. Pt has belongings in room.
--- NOTE | 2023-03-05 07:15 | PC.NURSE ---
Pt restless in room, unable to care for self as far as ordering food or answering all questions including if he needs anything. Pt stares off, distracted, takes time and repeated questions to answer.
--- NOTE | 2023-03-05 07:21 | PC.NURSE ---
Called dietary and ordered breakfast tray for pt at this time.
--- NOTE | 2023-03-05 08:01 | PC.NURSE ---
Pt attempting to ambulate out of room, pt re directed and is currently sitting on stretcher. Given call light, addressed needs.
--- NOTE | 2023-03-05 08:11 | PC.NURSE ---
Pt again attempted to walk out of room, this RN discussed w/ Petra emanuel RN and at this point an technical engineer was placed at bedside as sitter due to flight risk.
--- NOTE | 2023-03-05 09:31 | PC.NURSE ---
Records requested to be faxed to [facility] [phone] when paperwork completed. Crisis currently filling out involuntary paperwork, records will be faxed upon completion as requested. Geri from [facility] called for update on pt, advised currently working on placement for pt, involuntary. Pt remains in room, laying on stretcher - rocking, sitter at bedside due to flight risk.
--- NOTE | 2023-03-05 09:45 | PC.NURSE ---
Records faxed to [facility] in [place] at this time. FAX# [phone]
--- NOTE | 2023-03-05 10:35 | PC.NURSE ---
Xiomara Wu called with questions regarding pt, discussed pt behavior and treatments in ED. Xiomara states will present pt to a doctor and call us back to notify if able to accept. [facility] # [phone]
--- NOTE | 2023-03-05 10:46 | PC.NURSE ---
spoke to Xiomara with [facility] who requested to speak w/ pt to see if he would be voluntary to see Dr Frey who has treated him in the past. Per Xiomara, pt does not meet involuntary criteria. Pt has made SI statements and denies plan or intent. Pt unwilling to speak on phone to Dr Frey. Xiomara made aware and will speak w/ doc and call us back w/ any update. Katherine from [facility] called to notify they are unable to accept the pt at this time, they are at capacity with 2 in their ER.
--- NOTE | 2023-03-05 11:06 | PC.NURSE ---
Maris brewster [facility] called to get an update on placement
--- NOTE | 2023-03-05 11:20 | PC.NURSE ---
Talked to Xiomara at [facility], accepting pt with requests of pt unable to care for self notes - ie, unable to order own breakfast, and EDP note discussing pt is medically clear. Records will be faxed as requested to: [phone], Dr Frey is accepting physician.
--- NOTE | 2023-03-05 13:37 | PC.NURSE ---
Report given to [facility] for patient being transferred to them. patient being sent involuntary. Report given to Dee HAMILTON.
[2023-03-05 15:37] VITALS: BP 146/78; PULSE 71; RESP 14; TEMP 36.4; O2SAT 98
== END 2023-03-05 16:49 ==
PROVIDERS: Physician Assistant; Emergency Provider Preventive Medicine Aerospace Medicine
DX: F20.9 Schizophrenia, unspecified (principal); Z20.822 Contact with and (suspected) exposure to COVID-19; Z11.3 Encounter for screening for infections with a predominantly sexual mode of transmission; F31.9 Bipolar disorder, unspecified; I10 Essential (primary) hypertension; E78.5 Hyperlipidemia, unspecified; Z79.899 Other long term (current) drug therapy
CPT/HCPCS: 36415; 80053; 80307; 81001; 84443; 85025; 87491; 87591; 87636; 87661; 87808; 99285; A9270

== ENCOUNTER 2023-03-29 21:45 | Emergency (ER) | payer OTHER, SELFPAY ==
[2023-03-29] VITALS (13 sets, daily range): BP systolic 111–140; BP diastolic 81–97; PULSE 81–89; RESP 14–15; TEMP 36.6; O2SAT 97–99
--- NOTE | 2023-03-29 21:52 | PC.NURSE ---
Patient states he is hearing voices now. Patient states The doctor is telling me to jump off a bridge .
[2023-03-29 22:55] LABS: Acetaminophen < 10 ug/mL (10-30); Ethanol < 10 mg/dL (<10); Salicylate < 1.0 mg/dL (2-20)
[2023-03-29 22:56] LABS: Alanine Aminotransferase 39 U/L (6-50); Albumin Level 4.6 g/dL (3.5-5.1); Alkaline Phosphatase 79 U/L (38-126); Anion Gap 9 mmol/L (8-16); Aspartate Amino Transferase 45 U/L (17-59); Bilirubin,Total 0.3 mg/dL (0.2-1.3); Blood Urea Nitrogen 14 mg/dL (9-20); Calcium 9.7 mg/dL (8.4-10.2); Carbon Dioxide 27 mmol/L (22-30); Chloride 106 mmol/L (98-107); Estimated Glomerular Filt Rate > 60; Glucose 88 mg/dL (65-110); Potassium 3.8 mmol/L (3.4-5.0); Sodium 142 mmol/L (137-145)
--- NOTE | 2023-03-29 23:39 | PC.NURSE ---
Patient is now stating he would like to be euthanized since he does not have free will. When asked why he does not have free will patient states people always tell me what to do . Patient denies the voices he hears telling him what to do. When asked who tells him what to do the patient states I don't know .
[2023-03-29 23:42] LABS: Basophils Percent Auto 0.2 % (0.2-1.2); Eosinophils Absolute Auto 0.1 K/mm3 (0-0.3); Eosinophils Percent Auto 1.1 % (0-4.4); Hematocrit 37.2 % (42.0-52.0); Hemoglobin 12.2 g/dL (14.0-18.0); Immature Granulocyte Absolute 0.02 K/mm3 (0.00-0.031); Immature Granulocyte Percent A 0.2 % (0-0.5); Lymphocytes Percent Auto 38.7 % (18.3-44.2); Mean Corpuscular HGB Conc 32.8 g/dl (32-36); Mean Corpuscular Hemoglobin 27.4 pg (26-34); Mean Corpuscular Volume 83.6 fl (80-100); Mean Platelet Volume 11.5 fl (7.4-10.4); Monocytes Absolute Auto 0.8 K/mm3 (0.1-0.6); Monocytes Percent Auto 8.4 % (2.6-8.5); Neutrophils Absolute Auto 4.9 K/mm3 (1.3-6.7); Neutrophils Percent Auto 51.4 % (45.5-73.1); Platelet Count Result 228 k/mm3 (150-375); Red Blood Count 4.45 M/mm3 (4.6-6.20); Red Cell Distribution Width 13.3 % (11.5-14.5); White Blood Count 9.6 K/mm3 (4.5-10.0)
[2023-03-29 23:48] LABS: Valproic Acid < 10.0 ug/mL (50-120)
[2023-03-29 23:50] LABS: Appearance Urine Clear (Clear); Bacteria Urine None Seen /hpf; Bilirubin Urine Negative (Negative); Blood Urine Negative (Negative); Color Urine Dark Yellow (Yellow); Glucose Urine UA Negative (Negative); Ketones Urine Trace mg/dL (Negative); Leukocyte Esterase Ur Negative LEU/UL (Negative); Mucus Urine Present /lpf; Nitrate Urine Negative (Negative); Non Pathogenic Casts 0-2; Protein Urine Trace mg/dL (Negative); RBC Urine 0-2 /hpf (0-2); Squamous Epithelial Cell Urine None seen /hpf (Few); Urobilinogen Urine 0.2 mg/dL (<2.0); WBC Urine 0-5 /hpf; pH Urine 5.5 (5.0-9.0)
[2023-03-29 23:51] LABS: Add Urine Microscopic? NO; Specific Grav Ur 1.036 (1.001-1.035)
[2023-03-30] VITALS (8 sets, daily range): BP systolic 128–132; BP diastolic 86–98; PULSE 74–80; RESP 15–18; TEMP 36.6; O2SAT 98–100
[2023-03-30 00:11] LABS: Barbiturate Screen Urine Negative (Negative); Benzodiazepines Screen Urine Negative (Negative)
[2023-03-30 00:30] LABS: Amphetamine Screen Urine Negative (Negative); Cannabinoid Screen Urine Negative (Negative); Cocaine Screen Urine Negative (Negative); Methadone Screen Urine Negative (Negative); Opiate Screen Urine Negative (Negative); Phencyclidine Screen Urine Negative (Negative)
--- NOTE | 2023-03-30 00:47 | PC.NURSE ---
[facility] called to evaluate patient. Will be in to see patient within 2 hours
--- NOTE | 2023-03-30 00:59 | ED.GENADULT ---
HPI - General Adult General Chief complaint: Unspecified <Rojelio Prather MD - Last Filed: 03/30/23 03:37> Stated complaint: altered mental status <Rojelio Prather MD - Last Filed: 03/30/23 03:37> Time Seen by Provider: 03/29/23 22:26 <Rojelio Prather MD - Last Filed: 03/30/23 03:37> History of Present Illness HPI narrative: Patient 32-year-old gentleman who presents emergency department with chief complaint of hearing voices. Patient was found wandering around the city and was salivating and acting unusual. Patient denies drug use reports that has been hearing voices the patient denies suicidal or homicidal ideation. <Rojelio Prather MD - Last Filed: 03/30/23 03:37> Related Data Home medications: Home Medications Medication Instructions Recorded Confirmed benztropine 2 mg tablet mg 05/16/22 buspirone 30 mg tablet mg 05/16/22 divalproex 500 mg tablet,extended mg PO 05/16/22 release 24 hr metoprolol succinate 25 mg mg PO 05/16/22 tablet,extended release 24 hr ziprasidone HCl 80 mg capsule mg PO 05/16/22 <Rojelio Prather MD - Last Filed: 03/30/23 03:37> Allergies/adverse reactions: Allergies Allergy/AdvReac Type Severity Reaction Status Date / Time haloperidol AdvReac Unknown BLACKOUTS Verified 10/22/22 05:38 PER PT risperidone AdvReac Unknown INCREASES Verified 10/22/22 05:38 PROLACTIN PER PT lithium AdvReac Other Verified 10/22/22 05:38 <Rojelio Prather MD - Last Filed: 03/30/23 03:37> Review of Systems Review of Systems: A 10 system review of systems was completed on the patient and is negative except for what is stated in the HPI. Nursing and ancillary documentation was reviewed. <Rojelio Prather MD - Last Filed: 03/30/23 03:37> PMFSH Past Medical History Medical History: Medical History Bipolar disorder Hyperlipidemia Hypertension Schizophrenia <Rojelio Prather MD - Last Filed: 03/30/23 03:37> Social History Social History: Social History Smoking status: Never smoker Alcohol intake: never Substance use: current Substance use type: marijuana Gender identity (if verbalized by the patient): Male <Rojelio Prather MD - Last Filed: 03/30/23 03:37> Exam Narrative: GENERAL: Well-appearing, well-nourished, and in no acute distress. HEAD: Normocephalic, atraumatic. EYES: PERRLA and EOMI. ENT: Nares clear, no rhinorrhea or epistaxis. Mucous membranes moist. NECK: Supple. CHEST: Clear to auscultation. No respiratory distress. HEART: Regular rate and rhythm. No murmur heard. Normal peripheral pulses. ABDOMEN: Soft, nontender, nondistended, normal active bowel sounds. EXTREMITIES: Normal range of motion. No edema. SKIN: Warm, dry, no rash. NEURO: No focal deficits. Alert and oriented x3. PSYCH: Normal mood and unusual affect. Denies suicidal or homicidal ideation <Rojelio Prather MD - Last Filed: 03/30/23 03:37> Course Reevaluation(s) Reevaluation #1: PAtient accepted to [facility] by Dr. Colon. Patient has been cooperative <Joana Herman MD - Last Filed: 03/30/23 16:59> Date: 03/30/23 <Joana Herman MD - Last Filed: 03/30/23 16:59> Time: 09:00 <Joana Herman MD - Last Filed: 03/30/23 16:59> Vital Signs Vital signs: Vital Signs Temperature 97.9 F 03/29/23 21:45 Pulse Rate 89 03/29/23 21:45 Respiratory Rate 15 03/29/23 21:45 Blood Pressure 128/89 03/29/23 21:45 Pulse Oximetry 98 03/29/23 21:45 Oxygen Delivery Room Air 03/29/23 21:45 Temperature 97.8 F 03/30/23 07:35 Pulse Rate 76 03/30/23 12:42 Respiratory Rate 16 03/30/23 12:42 Blood Pressure 128/86 03/30/23 12:42 Pulse Oximetry 100 03/30/23 12:42 Ox
--- NOTE | 2023-03-30 02:38 | PC.NURSE ---
[facility] called for COVID results; advised they cannot proceed without those results. Advised to call back/fax results.
[2023-03-30 03:10] LABS: Influenza A QL RT-PCR Negative (Negative); Influenza B QL RT-PCR Negative (Negative); RSV RNA, RT-PCR Negative (Negative); SARS-CoV-2 RNA PCR Negative (Negative)
--- NOTE | 2023-03-30 06:25 | PC.NURSE ---
Cait[facility] returned call at 06:20. The earliest they could transfer would be Saturday. They would call back this afternoon (03/30) to update a ETA.
--- NOTE | 2023-03-30 06:54 | PC.NURSE ---
[facility] faxed covid results and advised they will call back with update on patient acceptance.
--- NOTE | 2023-03-30 07:06 | PC.NURSE ---
Called [facility] and updated on [facility] no [facility] accepting patient. Cancelled ambulance transfer. PT awaiting decision on [facility] at this time.
--- NOTE | 2023-03-30 08:40 | PC.NURSE ---
Pt is accepted at [facility] with accepting dr Colon and bed #6363A, report called to Liudmila HAMILTON. Waiting on transportations.
--- NOTE | 2023-03-30 08:48 | PC.NURSE ---
Pt walked out through the EMS doors, said he is going home, security walking after the pt.
--- NOTE | 2023-03-30 08:58 | PC.NURSE ---
Pt back to the ED with assistance of PD.
--- NOTE | 2023-03-30 09:07 | PC.NURSE ---
Sitter at the pt room
--- NOTE | 2023-03-30 09:37 | PC.NURSE ---
Addendum entered by Dee Sy, TECH 03/30/23 12:43: [facility] cancelled around 11. Original Note: [facility] accepted BLS transfer of PT. ETA of 30min to an hour
--- NOTE | 2023-03-30 12:45 | PC.NURSE ---
[facility] called at 11. Accepted transfer to [facility] at that time. ETA was noon. Arrived at 1240. Talked to Mima during this call. Trip number is [phone]
== END 2023-03-30 12:46 ==
PROVIDERS: Emergency Medicine; Emergency Provider General Practice
DX: F29 Unspecified psychosis not due to a substance or known physiological condition (principal); Z20.822 Contact with and (suspected) exposure to COVID-19; E78.5 Hyperlipidemia, unspecified; I10 Essential (primary) hypertension; F31.9 Bipolar disorder, unspecified; F20.9 Schizophrenia, unspecified
CPT/HCPCS: 36415; 80053; 80164; 80307; 81003; 84443; 85025; 87637; 99285

== ENCOUNTER 2023-04-03 20:25 | Emergency (ER) | payer OTHER, SELFPAY ==
--- NOTE | ~2023-04-03 | CT_ITS ---
EXAMINATION: CT brain wo con INDICATION: Altered mental status COMPARISON: 05/18/2020 TECHNIQUE: Standard unenhanced head CT. The dose-length product (DLP) was 681.00 mGy-cm. The mA was a djusted according to patient size. Iterative reconstruction technique was employed. FINDINGS: There is no intracranial hemorrhage, acute infarction, or abnormal mass lesion. The ventric les are normal. There is no abnormal mass effect or midline shift. The schaefer-white matter differentiat ion is normal. The basal cisterns are patent. The orbits are normal. There is mild mucosal thickening of the paranasal sinuses. IMPRESSION: 1. No acute intracranial abnormality. Reviewed, dictated and finalized at location F.
--- NOTE | ~2023-04-03 | XR_ITS ---
EXAMINATION: XR chest 1V INDICATION: Altered mental status TECHNIQUE: AP view of the chest is obtained. COMPARISON: 11/04/2022 FINDINGS: The lungs are free of acute opacities. No pleural effusion or pneumothorax. The cardiomedia stinal silhouette is normal. The visualized bones and soft tissues are unremarkable. IMPRESSION: 1. No acute cardiopulmonary abnormality. Reviewed, dictated and finalized at location F.
[2023-04-03 20:31] VITALS: BP 123/85; PULSE 68; RESP 18; O2SAT 97
--- NOTE | 2023-04-03 20:37 | ECG_ITS ---
Measurements Intervals [place] Rate: 68 P: 39 MS: 162 QRS: 24 QRSD: 93 T: 15 QT: 385 QTc: 411 Interpretive Statements SINUS RHYTHM COMPARED TO ECG 11/04/2022 15:11:18 SINUS RHYTHM NOW PRESENT Electronically Signed On 04-04-2023 10:49:24 CDT by Edin Oropeza M.D.
[2023-04-03 20:53] LABS: Appearance Urine Clear (Clear); Bilirubin Urine Negative (Negative); Blood Urine Negative (Negative); Color Urine Yellow (Yellow); Glucose Urine UA Negative (Negative); Ketones Urine Negative (Negative); Leukocyte Esterase Ur Negative LEU/UL (Negative); Nitrate Urine Negative (Negative); Protein Urine Negative (Negative); Specific Grav Ur 1.018 (1.001-1.035); Urobilinogen Urine 0.2 mg/dL (<2.0)
[2023-04-03 20:54] LABS: Basophils Percent Auto 0.2 % (0.2-1.2); Eosinophils Absolute Auto 0.1 K/mm3 (0-0.3); Eosinophils Percent Auto 0.9 % (0-4.4); Hematocrit 39.6 % (42.0-52.0); Immature Granulocyte Absolute 0.03 K/mm3 (0.00-0.031); Immature Granulocyte Percent A 0.3 % (0-0.5); Lymphocytes Absolute Auto 3.22 K/mm3 (0.9-3.2); Lymphocytes Percent Auto 29.1 % (18.3-44.2); Mean Corpuscular HGB Conc 32.8 g/dl (32-36); Mean Corpuscular Hemoglobin 27.5 pg (26-34); Mean Corpuscular Volume 83.9 fl (80-100); Mean Platelet Volume 11.3 fl (7.4-10.4); Monocytes Absolute Auto 0.7 K/mm3 (0.1-0.6); Monocytes Percent Auto 6.6 % (2.6-8.5); Neutrophils Percent Auto 62.9 % (45.5-73.1); Platelet Count Result 278 k/mm3 (150-375); Red Blood Count 4.72 M/mm3 (4.6-6.20); Red Cell Distribution Width 13.2 % (11.5-14.5); White Blood Count 11.1 K/mm3 (4.5-10.0)
[2023-04-03 21:04] LABS: Alanine Aminotransferase 34 U/L (6-50); Albumin Level 4.4 g/dL (3.5-5.1); Alkaline Phosphatase 84 U/L (38-126); Anion Gap 4 mmol/L (8-16); Aspartate Amino Transferase 39 U/L (17-59); Bilirubin,Total 0.4 mg/dL (0.2-1.3); Blood Urea Nitrogen 15 mg/dL (9-20); Calcium 9.5 mg/dL (8.4-10.2); Carbon Dioxide 28 mmol/L (22-30); Chloride 108 mmol/L (98-107); Estimated CRCL calculation 129 ml/min; Estimated Glomerular Filt Rate > 60; Glucose 92 mg/dL (65-110); Potassium 4.2 mmol/L (3.4-5.0); Sodium 140 mmol/L (137-145)
[2023-04-03 21:09] LABS: Add Urine Microscopic? NO
[2023-04-03 21:12] LABS: Amphetamine Screen Urine Negative (Negative); Barbiturate Screen Urine Negative (Negative); Benzodiazepines Screen Urine Negative (Negative); Cannabinoid Screen Urine Negative (Negative); Cocaine Screen Urine Negative (Negative); Methadone Screen Urine Negative (Negative); Opiate Screen Urine Negative (Negative); Phencyclidine Screen Urine Negative (Negative)
[2023-04-03 22:16] VITALS: BP 114/86; PULSE 76; RESP 15; O2SAT 98
[2023-04-03] MEDS: SODIUM CHLORIDE 0.9% IV 2,000 ML 999 ML IV CONT (22:17)
[2023-04-03 22:28] LABS: Prothrombin Time 13.4 Seconds (11.1-14.7)
[2023-04-03 22:30] LABS: Partial Thromboplastin Time 31.3 SECONDS (22.3-36.8)
[2023-04-03 22:31] LABS: Creatine Kinase 101 U/L (55-170); Ethanol < 10 mg/dL (<10); Lactic Acid Reflex 0.8 mmol/L (0.7-2.0); Lipase 92 U/L (23-300); Magnesium 2.1 mg/dL (1.6-2.3)
[2023-04-03 22:48] VITALS: BP 122/96; PULSE 68; RESP 15; O2SAT 100
--- NOTE | 2023-04-03 23:02 | PC.NURSE ---
Patient found standing at the sink after removing his IV's. He is cleaned and assisted into bed. Patient states I want to kill you and want to from suicide by surgical endoscopist . EDP Dr. Sherwood notified of comment.
[2023-04-03 23:09] LABS: Valproic Acid < 10.0 ug/mL (50-120)
[2023-04-04 00:51] LABS: Influenza A QL RT-PCR Negative (Negative); Influenza B QL RT-PCR Negative (Negative); RSV RNA, RT-PCR Negative (Negative); SARS-CoV-2 RNA PCR Negative (Negative)
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
--- NOTE | 2023-04-04 02:35 | PC.NURSE ---
[facility] ([facility] called to advise that they will have discharges in the morning, but currently do not have an open bed.
--- NOTE | 2023-04-04 07:12 | PC.NURSE ---
pt awake, started to strike his head against the wall. pt did stop. pt has no obvious injuries. pt stating the voices are talking to me why am I here received orders for Zyprexa and Ativan to be given IM.
[2023-04-04] MEDS: LORazepam INJ (*CRX) 2 MG/ML VIAL IM (07:37)
[2023-04-04] MEDS: WATER, STERILE FOR INJECTION 10 ML VIAL XX (07:38)
[2023-04-04] MEDS: OLANZapine 10 MG INJ VIAL IM (07:38)
--- NOTE | 2023-04-04 07:39 | PC.NURSE ---
pt moved to room 15. pt resting in stretcher with security and sitter at bedside.
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
--- NOTE | 2023-04-04 08:38 | PC.NURSE ---
faxed packet to [facility] [facility]
--- NOTE | 2023-04-04 10:01 | PC.NURSE ---
08:40 Faxed chart to [facility] 09:58 Faxed chart to [facility] 10:00 Faxed chart to [facility]
[2023-04-04 14:22] VITALS: BP 130/88; PULSE 88; RESP 16; O2SAT 97
== END 2023-04-04 16:00 ==
PROVIDERS: Emergency Provider Emergency Medicine
DX: F20.9 Schizophrenia, unspecified (principal); F31.9 Bipolar disorder, unspecified; Z20.822 Contact with and (suspected) exposure to COVID-19; E78.5 Hyperlipidemia, unspecified; I10 Essential (primary) hypertension; Z79.899 Other long term (current) drug therapy
CPT/HCPCS: 36415; 70450; 71045; 80053; 80164; 80307; 81003; 82550; 83605; 83690; 83735; 84443; 85025; 85610; 85730; 87637; 93005; 96360; 96372; 99285; J2060; J7030